=== PATIENT | female | born 1970 | race Caucasian/White ===

== ENCOUNTER → 2016-12-21 | Day surgery (SDC) | payer OTHER ==
[~2016-12-21] VITALS: Ht 162.6 cm; Wt 113.4 kg
[~2016-12-21] MED LIST: CETI10CA PO; GLUC-181 PO; Ketamine 10 mg/mL 20 mL Inj ONE; Lactated Ringer's 1,000 ML IV ONE; Lactated Ringer's 1,000 ML IV SCH; MetoCLOpramide 5 mg/mL 2 mL Inj IVPUSH PRN; OMEP20CA11 PO; Ondansetron 2 mg/mL 2 mL Inj IVPUSH PRN; PROP20TA5 PO; Propofol 10,000 mCg/mL 20 mL Inj ONE; fentaNYL-PF 50 mCg/mL 2 mL Inj ONE
--- NOTE | 2016-12-21 07:51 | PCM.HPANE ---
Patient Data Surgeon Admitting Provider: Attending Provider:Thierno Dean MD Primary Care Physician:Sherri Paris DO Other Provider:Zaire Henderson Anesthesia Reason for Visit Diarrhea Ht/WT & BMI Body Mass Index Allergies Coded Allergies: No Known Drug Allergies (Verified Allergy, Unknown, 12/20/16) Past Anesthesia History Anesthesia History: Denies:: Abnormal Airway, Difficult Intubation Diabetes History Hx Diabetes?: No MRSA MRSA: No Medications Hypertension Medication: No Home Meds Incl Beta Brenda: Yes Date Beta Brenda Taken: Dec 20, 2016 Time Beta Brenda Taken: 20:00 Reported Medications Gluc/Christopher-MSM#1/C/Fernando/Tone/Bor (Osteo Bi-Flex Caplet)1 Each Tablet1 Each PO 12/21/16 Cetirizine HCl (Zyrtec)10 Mg [id number] Mg PO HS #30 CAPSULE Ref 0 12/21/16 Omeprazole 20 Mg Capsule.dr20 Mg PO DAILY Ref 0 12/21/16 Propranolol HCl 20 Mg Obviyk12 Mg PO TID 90 Days Ref 0 12/21/16 History History of ENT Problems?: No HEENT History: Denies:: Abnormal Airway Cataracts Difficult Intubation Dysphagia Glaucoma Hearing Problem Sinus Problem TMJ Denture Type: None Teeth Condition: Within Normal Limits Hx of Heart Problems?: No Cardiovascular History: Denies:: AICD Abdominal Aortic Aneurism Atrial Fibrillation Cardiac Surgery Chest Pain Congestive Heart Failure Coronary Artery Disease Edema Heart Murmur Hypertension Irregular Heartbeat Pacemaker Peripheral Vascular Rheumatic Fever Thrombophlebitis Valvular Heart Disease Hx of Respiratory Problem?: No Respiratory History: Denies:: Asthma COPD Chest Surgery Cough Dyspnea Emphysema Hemoptysis Oxygen Administration Pneumonia Pulmonary Embolism Tuberculosis Use of C-PAP Machine Use of Inhalers / NEBS Hx Neurologic Problems?: Yes (anxiety) Neurological History: Denies:: Alzheimer's Disease CVA Dementia Dizziness Headaches Multiple Sclerosis Parkinson's Disease Peripheral Neuropathy Seizures TIA Hx of GI Problems?: Yes (diarrhea) Hx of Problems?: No HX of Peritoneal Dialysis: No Female Hx: Denies:: Currently Skin History: Denies:: History Skin Disorders? Pressure Ulcers Hx Musculoskeletal Problems?: Yes (obese) Hx of Psycho/Social Problems?: Yes Psycho Social History: Positive for:: Anxiety Hx Surgeries?: No Hx Any Other Health Problems?: No Stop/Bang Treated for Sleep Apnea?: No Do You Have a CPAP Machine?: No S-Snoring: Do You Snore Loudly: Yes T-Tired: feel tired, fatigued: No B- Body Mass Index > 35 kg/m2: Yes A- Age over 50: No N- Neck Large Circumference: No G- Gender Male: No TRIPP Risk Assessment: Low Risk, <3 Yes Risk Assessment Category Category 1A: Patient has history of documented sleep apnea, and HAS NOT received any narcotic, sedative or anesthesia administration during this stay. Category 1B: Patient has history of documented sleep apnea, and HAS received any narcotic , sedative or anesthesia administration during this stay Category 2: Patient has SUSPECTED Obstructive Sleep Apnea, and HAS received any narcotic , sedative or anesthesia administration during this stay. Category 3: Patient has SUSPECTED Obstructive Sleep Apnea and HAS NOT received narcotic, sedative or anesthesia administration during this stay. Category 4: Outpatient in Procedural Areas with known sleep apnea or who screen positive for High Risk via the STOP/BANG questionnaire. Exam Exam General Appearance: Alert, Oriented X3, Cooperative, No Acute Distress HEENT/AIRWAY: MP 2 Lungs: Clear to Auscultation, Normal Air Movement Heart: Exam Unremarkable, Regular Rate/Rhythm, No Murmurs/Rubs/Gallops Plan Impression Patient chart reviewed, patient interviewed and anesthestic plan with risks, benefits, and alternatives discussed, and informed consent obtained. ASA Physical Status: ASA2 Mod Systemic Disease Anesthetic Plan: MAC Bene/Risks/Altern/Consents: Yes HP Complete Prior to Induction: Yes Enrique Tinsley MD Dec 21, 2016 07:51
[2016-12-21 14:22] VITALS: BP 151/95; PULSE 76; RESP 17; O2SAT 97
--- NOTE | 2016-12-21 15:22 | PCM.ENDEGD ---
EGD Date of Service: Dec 21, 2016 Physician Thierno Dean MD Pre Procedure Diagnosis: Diarrhea Post Procedure Dx & Findings: Possible Griffiths's gastritis Procedure Esophagogastroduodenoscopy PROCEDURE IN DETAIL: Sedation by anesthesiology After proper sedation, Olympus video endoscope was inserted into patient's mouth and esophagus was successfully intubated. Scope introduced esophagus. Esophagus showed normal shiny whitish mucosa consistent with squamous cell component. Z line was at 40 cm from the incisors. Small irregularity less than 2 cm with salmon-colored mucosa noted at the Z line consistent with Griffiths 's esophagus. Four-quadrant biopsy obtained every 2 cm. Narrow banding done. No mass ulcer nodule erosion mucosa abnormality. Scope further advanced to the stomach. Stomach mucosa showed some edema and redness consistent with gastritis. Biopsies done.. Cardia fundus body antrum pylorus were all visualized. Retroflexion was done. Stomach was easily inflated and deflatable using air. Scope further advanced to the distal duodenum. Duodenum revealed normal villous structures with normal appearing folds without any mass ulcer erosion. 5 biopsies obtained in the duodenum for celiac disease. Impression Possible Griffiths's esophagus Gastritis Recommendation Await biopsies Presedation Assessment Risks and Benefits Informed consent was obtained from the patient after all risks and benefits including but not limited to drug reaction, infection, pain, bleeding, perforation, as well as alternatives were discussed. Patient monitoring Continuous pulse oximetry, cardiac monitoring, blood pressure monitoring, IV access, and oxygen at 2L per nasal cannula. Complications There were no periprocedural complications identified. Post Procedure Plan Post Procedure Recommendations 1. Restrict activities today. 2. Resume normal activities in the morning. 3. Resume medications. 4. GERD behavioral modification: - Avoid fatty, acidic, spicy, large meals - Do not lie down after meals - Do not eat or drink anything for at least 2 1/2 hours before going to bed at night - Discontinue tobacco and alcohol - Decrease or avoid caffeine - Avoid chocolate and mints - Decrease weight - Avoid aspirin and non steroidal anti-inflammatory agents (NSAID) such as Aleve, Advil, Mobic, Naproxen, Ibuprofen, etc 5. Add proton pump inhibitor. Take 30 minutes before 1st meal of the day. 6. Patient informed of normal post procedure side effects as bloating, drowsiness, blood streaking in the stool 7. If gastric biopsy reveal H.pylori, continue with appropriate treatment 8. If small bowel biopsy reveals celiac, continue with appropriate treatment 9. Please don't hesitate to call me with any questions Thierno Dean MD Dec 21, 2016 15:22
[2016-12-21 15:23] VITALS: BP 126/70; PULSE 81; RESP 16; O2SAT 96
--- NOTE | 2016-12-21 15:24 | PCM.ENDCOL ---
Colonoscopy Date of Service: Dec 21, 2016 Physician Thierno Dean MD Pre Procedure Diagnosis: Diarrhea Post Procedure Dx & Findings: Poor prep transverse ulcer Procedure Colonoscopy PROCEDURE IN DETAIL: Sedation by anesthesiology Prep poor After unremarkable rectal examination the Olympus video colonoscope was inserted patient's anal canal and was advanced to cecum. Landmarks were identified including the ileocecal valve and appendiceal orifice. Scope further advanced to the terminal ileum. We advanced 10 cm. Visualized terminal ileum showed normal villous structures without any ulcer mass or erosion. Scope was withdrawn systematically. Visualized colonic mucosa showed healthy shiny mucosa with normal healthy-appearing vasculature. Form solid stools starting at the transverse colon and into the cecum. Left colon had a lot of fibrous material in the liquid stool so suctioning was not very effective. Random biopsies obtained from the cecum to the rectum. In the transverse colon there was a 2 mm superficial ulcer with surrounding edema. Biopsies obtained. In the rectum retroflexion was done which showed hemorrhoids. Anal canal was inspected carefully on the way out and hemorrhoids noted. Impression Poor prep - however there is no evidence of Crohn's disease or ulcerative colitis. Transverse ulcer Hemorrhoids Recommendation Follow up in GI clinic and we will talk about repeating colonoscopy.. Presedation Assessment Risks and Benefits Informed consent was obtained from the patient after all risks and benefits including but not limited to drug reaction, infection, pain, bleeding, perforation, as well as alternatives were discussed. Patient monitoring Continuous pulse oximetry, cardiac monitoring, blood pressure monitoring, IV access, and oxygen at 2L per nasal cannula. Complications There were no periprocedural complications identified. Post Procedure Plan Post Procedure Recommendations 1. Restrict activities today. 2. Resume normal activities in the morning. 3. Resume medications. 4. Patient informed of normal post procedure side effects as bloating, drowsiness, blood streaking in the stool. 5. average risk CRCS. If colon polyps come back as: -Hyperplastic- can repeat colonoscopy in 10 years -Tubular adenoma- repeat colonoscopy in 5 years -Tubulovillous/villous adenoma- repeat colonoscopy in 3 years -If any dysplasia- return to clinic as soon as possible 6. Please don't hesitate to call me with any questions. Thierno Dean MD Dec 21, 2016 15:24
[2016-12-21 15:33] VITALS: BP 120/75; PULSE 73; RESP 16; O2SAT 97
--- NOTE | 2016-12-22 09:20 | PCM.ANEP1 ---
Post Anesthesia PACU Phase 1 Assessment Anesthetic Administered: MAC Level of Alertness: Awake, talking Pain: No Nausea or Vomiting: No CV Function & Hydration Stable: Yes Airway Device: none Lungs: Clear to Auscultation, Normal Air Movement PACU Phase 2 Assessment Complications: No Follow up Care: No Patient Instructions Provided: N/A Enrique Tinsley MD Dec 22, 2016 09:20
--- NOTE | 2016-12-27 11:38 | PATH ---
SURGICAL PATHOLOGY Attending Physician:Thierno Dean M.D. CASE STATUS: Signed Out PATIENT NAME: TONY GAINES. PID: [id number] : 1970 DATE COLLECTED:12/21/2016 00:00 SPECIMEN: 1: Duodenum, Biopsy 2: Gastric, Biopsy 3: Esophagus, Biopsy 4: Colon, Biopsy 5: Colon, Biopsy CLINICAL HISTORY: 1). DUODENUM BIOPSY 2). GASTRIC BIOPSY RULE OUT H PYLORI 3). DISTAL ESOPHAGUS BIOPSY 4). RANDOM COLON BIOPSY 5). TRANSVERSE ULCER FINAL DIAGNOSIS: 1.DUODENUM, BIOPSY: -DUODENAL MUCOSA WITH NO DIAGNOSTIC ABNORMALITY. -No evidence of granulomas. -Negative for active inflammation, features of sprue, dysplasia, and malignancy. 2.GASTRIC BIOPSY: -GASTRIC BODY-TYPE MUCOSA WITH CHRONIC ACTIVE GASTRITIS AND GRANULOMAS, COMPATIBLE WITH GRANULOMATOUS GASTRITIS. See comment. -Negative for Helicobacter pylori microorganisms by immunohistochemistry. -Negative for intestinal metaplasia. -Negative for dysplasia and malignancy. - Special stains AFB and PAS pending, results will be reported in an addendum. 3.DISTAL ESOPHAGUS, BIOPSY: -SQUAMOCOLUMNAR JUNCTIONAL MUCOSA WITH CHRONIC FOCALLY ACTIVE INFLAMMATION INVOLVING GLANDULAR MUCOSA. -Multiple noncaseating granulomas are identified. See comment. -Negative for intestinal metaplasia. -Negative for dysplasia and malignancy. - Special stains AFB and PAS pending, results will be reported in an addendum. 4.RANDOM COLON, BIOPSIES: -FRAGMENTS OF COLONIC MUCOSA WITH PROMINENT BENIGN LYMPHOID AGGREGATES INVOLVING FEW FRAGMENTS. -No evidence of active, chronic, and microscopic colitis. -No evidence of granulomas. -Negative for dysplasia and malignancy. 5.TRANSVERSE ULCER, BIOPSY: -COLONIC MUCOSA WITH EROSION AND ACTIVE COLITIS. -No evidence of chronic and microscopic colitis. -No evidence of granulomas. -No evidence of dysplasia and malignancy. -See comment. [id number] NOTE: Parts 2 and 3). The differential diagnosis of granulomatous gastritis includes infection, Crohn' s disease, sarcoidosis, foreign body reaction (cereal granuloma), and idiopathic granulomatous gastritis. There is increasing evidence that granulomatous gastritis can be seen in Helicobacter pylori infection. The presence of granulomas in the distal esophagus, likely represents the involvement by the similar process seen in the gastric biopsy. References: Sue Washington et al. Granulomatous Gastritis: A Clinical Pathologic Analysis of Eighteen Cases. Am J Surg Path. 2004. 28:941-945. Kylah LOZANO, Tomas JR, Idalia RE. A Clinical Pathologic Study of Forty-two Patients with Granulomatous Gastritis: Is There Really "Idiopathic" Granulomatous Gastritis? Am J Surg Path. 1996. 20:462-470. Part 5) The differential diagnosis of focal active colitis includes bowel preparation effect, trauma/prolapse, acute self-limited colitis, infection, ischemia, colitis associated with NSAIDS, Crohn' s disease, and ulcerative colitis under active medical management. Clinical correlation is recommended. The results of AFB and PAS on parts 2 and 3 will be reported in an addendum. As part of a routine quality tester, Dr. Richard has also reviewed this case and agrees with the diagnosis. GROSS DESCRIPTION: The specimens are received in formalin, labeled with the patient's name, and sublabeled as the following: (1) duodenal Bx; (2) gastric Bx; (3) distal esophagus Bx; (4) random colon Bx; (5) transverse ulcer. (1) The specimen consists of multiple fragments of mirza glistening semitranslucent tissue (0.7 x 0.2 x 0.1 cm in aggregate). Section code: (1A) tissue. Specimen entirely submitted. (2) The specimen consists of multiple fragments of mirza glistening semitranslucent tissue (0.5 x 0.2 x 0.1 cm in aggregate). Section code: (2A) tissue. Specimen entirely submitted. (3) The specimen consists of multiple fragments of fitzgerald-white glistening translucent tissue (1.1 x 0.5 x 0.1 cm in aggregate). Section code: (3A) tissue. Specimen entirely submitted. (4) The specimen consists of multiple fragments of mirza glistening semitranslucent tissue (1.5 x 0.4 x 0.1 cm in aggregate). Section code: (4A) tissue. Specimen entirely submitted. (5) The specimen consists of a fragment of mirza glistening semitranslucent tissue (0.3 x 0.3 x 0.1 cm). Section code: (5A) tissue. Specimen entirely submitted. 12/23/16 JM MICRO DESCRIPTION: 2. An immunohistochemical stain was performed to evaluate for Helicobacter pylori microorganisms. The control stains show appropriate reactivity. This test was developed and its performance characteristics determined by [employer]. It has not been cleared or approved by the [place]. [place]. Food and Drug Administration. The FDA has determined that such clearance or approval is not necessary. This test is used for clinical purposes. It should not be regarded as investigational or for research. ICD-9 CODES: CPT CODES: 1: 24935 2: 66194, 68946, 28564 3: 17529, 24472, 22745, 19599 4: 93604 5: 47093 PROCEDURE/ADDENDA: Addendum SPI Addendum Diagnosis {Not Entered} Addendum Comment This addendum is issued to report the results of special stains AFB and PAS. Parts 2 and 3). The granulomas are negative for acid fast mycobacteria and fungal microorganisms by AFB and PAS special stains. The control stains show appropriate reactivity. This test was developed and its performance characteristics determined by [employer]. It has not been cleared or approved by the [place]. [place]. Food and Drug Administration. The FDA has determined that such clearance or approval is not necessary. This test is used for clinical purposes. It should not be regarded as investigational or for research. Electronically Signed Out Gio Enamorado MD Electronically Signed Out Gio Enamorado MD [facility], [place] [address] Technical component performed at [facility], [facility] [address], [address]
== END | disposition home or self-care (01) ==
LOC: END 01:27
PROVIDERS: ATTEND Internal Medicine
DX: R19.7 Diarrhea, unspecified (principal); K51.90 Ulcerative colitis, unspecified, without complications; K64.8 Other hemorrhoids; K29.50 Unspecified chronic gastritis without bleeding; I10 Essential (primary) hypertension; F90.9 Attention-deficit hyperactivity disorder, unspecified type; J40 Bronchitis, not specified as acute or chronic; Z79.51 Long term (current) use of inhaled steroids
CPT/HCPCS: 43239; 45380; J2250; J2704; J3010